=== PATIENT | male | born 1950 | race Caucasian/White ===

== ENCOUNTER 2019-03-06 00:51 | Outpatient (CLI) | payer MEDICARE, BC, SELFPAY ==
--- NOTE | 2019-03-06 14:12 | DI.CTLCSR_ITS ---
EXAM: CT CHEST LUNG CANCER SCREEN CLINICAL HISTORY: NICOTINE DEPENDENCE F17.210 TECHNIQUE: Low dose screening technique. COMPARISON: No exams were available for comparison FINDINGS: The heart size is normal. Coronary artery calcifications and mild aortic calcifications are seen. There are no pleural or pericardial effusions or evidence of adenopathy. There is a small area of sc arring near the left diaphragm in the left lower lobe. No suspicious nodules are seen. There are no infiltrates. No emphysematous changes or interstitial changes are seen. Degenerative changes are s een in the spine. The visualized portions of the upper abdominal organs are unremarkable. IMPRESSION: Lung RADS Cat 1 - Negative: No nodules and definitely benign nodules. Annual low-dose screening CT i s recommended.
== END 2019-03-06 01:11 ==
PROVIDERS: PCP Hospitalist; Visit Provider Family Medicine
DX: Z12.2 Encounter for screening for malignant neoplasm of respiratory organs (principal); F17.210 Nicotine dependence, cigarettes, uncomplicated
CPT/HCPCS: G0297

== ENCOUNTER → 2024-01-03 09:59 | Outpatient (BNVA) | payer MEDICARE, BC, SELFPAY | PROVIDERS: PCP Hospitalist; Referring Provider Physician Assistant; Visit Provider Nurse Practitioner Adult Health | DX: R51.9 Headache, unspecified (principal); F07.81 Postconcussional syndrome | CPT/HCPCS: 99204 ==